=== PATIENT | female | born 1975 | race Caucasian/White ===

== ENCOUNTER 2020-09-10 06:39 | Inpatient (IN) | payer OTHER ==
[2020-09-10] MEDS ORDERED: DEXAMETHASONE SOD PHOSPHATE 10 MG/1 ML VIAL ONE (06:51)
[2020-09-10] MEDS: ALBUTEROL SO4 0.083% IH SOL 2.5 MG/3 ML VIAL.NEB. NEB SCH ×4 (07:05→07:44)
[2020-09-10 07:53] LABS: HEMATOCRIT 37.9 % (32.4-45.2); HEMOGLOBIN 12.7 GM/dL (10.7-15.3); MCH 30.8 pg (25.7-33.7); MCHC 33.6 g/dl (32.0-36.0); MEAN CELL VOLUME 91.7 fl (80-96); MEAN PLT VOLUME 9.4 fl (7.5-11.1); PLATELET COUNT 282 K/MM3 (134-434); RBC 4.13 M/mm3 (3.60-5.2); RDW 13.4 % (11.6-15.6); WHITE BLOOD COUNT 8.9 K/mm3 (4.0-10.0)
[2020-09-10 07:54] LABS: INR 0.86 (0.83-1.09); PROTHROMBIN TIME (PATIENT) 10.5 SEC (9.7-13.0)
[2020-09-10 08:07] LABS: CHLORIDE 108 mmol/L (98-107); POTASSIUM 3.3 mmol/L (3.5-5.1); SODIUM 142 mmol/L (136-145)
[2020-09-10 08:09] LABS: ALBUMIN 3.7 g/dl (3.4-5.0); ANION GAP 8 MMOL/L (8-16); CALCIUM 8.6 mg/dL (8.5-10.1); CO2 26 mmol/L (21-32)
[2020-09-10 08:10] LABS: GLUCOSE,RANDOM 118 mg/dL (74-106)
[2020-09-10 08:13] LABS: CREATININE 0.7 mg/dL (0.55-1.3); SGOT/AST 18 U/L (15-37); SGPT/ALT 20 U/L (13-61)
[2020-09-10 08:14] LABS: BILIRUBIN,TOTAL 0.2 mg/dL (0.2-1); TOT PROT 7.2 g/dl (6.4-8.2)
[2020-09-10 08:16] LABS: ALK PHOS 69 U/L (45-117)
[2020-09-10] MEDS ORDERED: POTASSIUM CHLORIDE TABS 20 MEQ TABLET.ER (FP) PO ONE ×2 (08:23→08:26)
[2020-09-10] MEDS ORDERED: ACETAMINOPHEN 500 MG TABLET (FP) PO ONE (08:50)
[2020-09-10] MEDS ORDERED: ACETAMINOPHEN 325 MG TABLET (FP) ONE (08:53)
[2020-09-10] MEDS ORDERED: ALBUTEROL SO4 0.083% IH SOL 2.5 MG/3 ML VIAL.NEB. NEB ONE ×2 (10:00→10:01)
[2020-09-10] MEDS ORDERED: METOCLOPRAMIDE HCL INJECTION 10 MG/2 ML VIAL IVPUSH ONE (13:35)
[2020-09-10] MEDS ORDERED: METOCLOPRAMIDE HCL INJECTION 10 MG/2 ML VIAL ONE (13:36)
[2020-09-10] MEDS ORDERED: ALBUTEROL SO4 HFA INHALER IH ONE (19:59)
[2020-09-10] MEDS: ALBUTEROL SO4 HFA INHALER IH PRN (20:05)
[2020-09-10] MEDS: MONTELUKAST NA 10 MG TABLET PO SCH (22:12)
[2020-09-10] MEDS: methylPREDNISolone NA SUCC 40 MG/1 ML VIAL IVPUSH SCH (22:12)
[2020-09-10 23:49] VITALS: BMI 29.2
[2020-09-11] MEDS: ACETAMINOPHEN 325 MG TABLET (FP) PO PRN ×3 (01:17→21:32)
[2020-09-11] MEDS: methylPREDNISolone NA SUCC 40 MG/1 ML VIAL IVPUSH SCH ×4 (02:18→18:16)
[2020-09-11] MEDS: ALBUTEROL SO4 HFA INHALER IH PRN (02:18)
[2020-09-11] MEDS: PANTOPRAZOLE 40 MG TABLET PO SCH (09:39)
[2020-09-11] MEDS: BUDESONIDE/FORMETEROL FUMARATE 160/4.5 mcg INHALER IH SCH ×2 (12:30→21:25)
[2020-09-11] MEDS ORDERED: methylPREDNISolone NA SUCC 40 MG/1 ML VIAL IVPUSH SCH (13:00)
[2020-09-11] MEDS: ALBUTEROL SO4 2.5/IPRATROPIUM 0.5 INH SOL 3 ML VIAL.NEB. NEB PRN ×2 (14:30→20:10)
[2020-09-11] MEDS: MONTELUKAST NA 10 MG TABLET PO SCH (21:25)
[2020-09-12] MEDS: methylPREDNISolone NA SUCC 40 MG/1 ML VIAL IVPUSH SCH ×2 (02:50→10:40)
[2020-09-12] MEDS: ACETAMINOPHEN 325 MG TABLET (FP) PO PRN (06:26)
[2020-09-12] MEDS: ALBUTEROL SO4 2.5/IPRATROPIUM 0.5 INH SOL 3 ML VIAL.NEB. NEB PRN (08:47)
[2020-09-12] MEDS: PANTOPRAZOLE 40 MG TABLET PO SCH (10:40)
[2020-09-12] MEDS: BUDESONIDE/FORMETEROL FUMARATE 160/4.5 mcg INHALER IH SCH (10:43)
[2020-09-12 11:20] VITALS: BP 118/64; PULSE 93; TEMP 98.9
== END 2020-09-12 15:03 | disposition home or self-care (01) | DRG 203 ==
LOC: JER 06:39 → JERBED 10:15 → J6S 20:50
PROVIDERS: ADMIT Internal Medicine; ATTEND Internal Medicine
DX: J45.901 Unspecified asthma with (acute) exacerbation (principal)
CPT/HCPCS: 36415; 71045-TC-FY; 80053; 83735; 84484; 84703; 85027; 85610; 85730; 93005; 93010; 94640; 94660; 99285-25; C9803; U0003

== ENCOUNTER 2021-06-09 19:13 | Inpatient (IN) | payer OTHER ==
[2021-06-09] MEDS ORDERED: ALBUTEROL SO4 2.5/IPRATROPIUM 0.5 INH SOL 3 ML VIAL.NEB. NEB ONE ×4 (19:31→23:57)
[2021-06-09] MEDS ORDERED: methylPREDNISolone NA SUCC 125 MG/2 ML VIAL IVPB ONE (19:48)
[2021-06-09] MEDS ORDERED: MAGNESIUM SULF 50% (8.12 MEQ/2 ML-1 GM VIAL) IVPB ONE (19:52)
[2021-06-09] MEDS ORDERED: methylPREDNISolone NA SUCC 125 MG/2 ML VIAL ONE (19:59)
[2021-06-09] MEDS ORDERED: MAGNESIUM SULFATE IN WATER 2 GM/50 ML IVPB IVPB ONE (19:59)
[2021-06-09] MEDS ORDERED: ALBUTEROL SO4 0.083% IH SOL 2.5 MG/3 ML VIAL.NEB. NEB ONE (20:15)
[2021-06-09] MEDS: ALBUTEROL SO4 2.5/IPRATROPIUM 0.5 INH SOL 3 ML VIAL.NEB. NEB SCH ×3 (20:22→21:49)
[2021-06-09 20:48] LABS: BASO % 0.6 % (0-2.0); EOS % 2.7 % (0-4.5); HEMATOCRIT 38.9 % (32.4-45.2); MCHC 33.4 g/dl (32.0-36.0); MEAN CELL VOLUME 89.9 fl (80-96); MEAN PLT VOLUME 9.8 fl (7.5-11.1); MONO % 9.5 % (3.8-10.2); NEUT % 78.2 % (42.8-82.8); PLATELET COUNT 242 10^3/uL (134-434); RBC 4.33 M/mm3 (3.60-5.2); RDW 13.7 % (11.6-15.6); WHITE BLOOD COUNT 9.3 K/mm3 (4.0-10.0)
[2021-06-09 21:25] LABS: ALBUMIN 3.7 g/dl (3.4-5.0); BLOOD UREA NITROGEN 4.9 mg/dL (7-18); CALCIUM 8.1 mg/dL (8.5-10.1)
[2021-06-09 21:28] LABS: CREATININE 0.7 mg/dL (0.55-1.3)
[2021-06-09 21:30] LABS: BILIRUBIN,TOTAL 0.4 mg/dL (0.2-1); TOT PROT 7.1 g/dl (6.4-8.2)
[2021-06-09] MEDS ORDERED: POTASSIUM CHLORIDE TABS 20 MEQ TABLET.ER (FP) PO ONE ×2 (22:01→22:04)
[2021-06-09] MEDS ORDERED: POTASSIUM CHLORIDE ORAL LIQUID 20 MEQ/15 ML ONE (22:08)
[2021-06-10] MEDS ORDERED: ALBUTEROL SO4 0.083% IH SOL 2.5 MG/3 ML VIAL.NEB. NEB ONE
[2021-06-10 02:26] VITALS: BMI 28.8
[2021-06-10] MEDS ORDERED: methylPREDNISolone NA SUCC 40 MG/1 ML VIAL IVPUSH ONE ×3 (04:30→09:48)
[2021-06-10] MEDS: ALBUTEROL SO4 0.083% IH SOL 2.5 MG/3 ML VIAL.NEB. NEB PRN ×4 (05:04→09:52)
[2021-06-10] MEDS ORDERED: ACETAMINOPHEN 325 MG TABLET (FP) PO PRN ×2 (05:11→10:54)
[2021-06-10] MEDS ORDERED: INSULIN SLIDING SCALE (NOVOLOG) 1 VIAL SQ SCH (07:00)
[2021-06-10 07:28] LABS: ARTERIAL BLD GAS O2 SATURATION 92.5 % (95-98); ARTERIAL BLOOD GAS BASE EXCESS -3.2 mmol/L (-2-2); ARTERIAL BLOOD GAS PO2 61.9 mmHg (80-100); ARTERIAL BLOOD GAS pH 7.423 (7.350-7.450)
[2021-06-10 07:30] LABS: ALLENS TEST POSITIVE
[2021-06-10] MEDS ORDERED: guaiFENesin 200 MG/10 ML 10 ML UNIT-DOSE CUPS PO PRN (07:55)
[2021-06-10 08:57] LABS: HEMATOCRIT 37.1 % (32.4-45.2); HEMOGLOBIN 12.5 GM/dL (10.7-15.3); MCHC 33.7 g/dl (32.0-36.0); MEAN PLT VOLUME 9.8 fl (7.5-11.1); PLATELET COUNT 255 10^3/uL (134-434); RBC 4.17 M/mm3 (3.60-5.2); RDW 13.9 % (11.6-15.6); WHITE BLOOD COUNT 9.3 K/mm3 (4.0-10.0)
[2021-06-10 09:28] LABS: BLOOD UREA NITROGEN 5.1 mg/dL (7-18); CALCIUM 8.8 mg/dL (8.5-10.1)
[2021-06-10 09:31] LABS: CREATININE 0.7 mg/dL (0.55-1.3)
[2021-06-10] MEDS ORDERED: ALBUTEROL SO4 2.5/IPRATROPIUM 0.5 INH SOL 3 ML VIAL.NEB. NEB ONE ×2 (09:49→10:54)
[2021-06-10] MEDS ORDERED: methylPREDNISolone NA SUCC 125 MG/2 ML VIAL ONE (09:50)
[2021-06-10] MEDS ORDERED: BUDESONIDE/FORMETEROL FUMARATE 160/4.5 mcg INHALER IH SCH (10:00)
[2021-06-10] MEDS ORDERED: LORATADINE 10 MG TABLET PO SCH (10:00)
[2021-06-10] MEDS ORDERED: methylPREDNISolone NA SUCC 40 MG/1 ML VIAL IVPUSH SCH ×4 (10:00→18:00)
[2021-06-10] MEDS ORDERED: ENOXAPARIN NA (PORCINE) 40 MG/0.4 ML DISP.SYRIN SQ SCH (10:00)
[2021-06-10] MEDS ORDERED: PANTOPRAZOLE 40 MG TABLET PO SCH (10:00)
[2021-06-10 10:09] LABS: ANISOCYTOSIS 0; HELMET CELLS 0; HOWELL-JOLLY BODIES 0; MACROCYTOSIS 0; OVALOCYTE 0; PLATELET ESTIMATE NORMAL; ROULEAU 0; SICKELED CELLS 0; TARGET CELLS 0; TEAR DROP CELLS 0; TOXIC GRANULATION 0
[2021-06-10] MEDS ORDERED: ONDANSETRON 4 MG/2 ML VIAL IVPUSH PRN ×2 (10:18→10:54)
[2021-06-10] MEDS ORDERED: ALBUTEROL SO4 0.083% IH SOL 2.5 MG/3 ML VIAL.NEB. NEB PRN ×2 (10:26→10:54)
[2021-06-10] MEDS ORDERED: PT OWN MED DRAWER 7, Y5N ONE ×2 (10:40→12:29)
[2021-06-10] MEDS ORDERED: LEVALBUTEROL HCL 0.63 MG/3 ML VIAL.NEB. IH SCH ×2 (11:00)
[2021-06-10] MEDS ORDERED: IPRATROPIUM BR 0.02% 0.5 MG/2.5 ML VIAL.NEB. NEB SCH ×2 (11:00)
[2021-06-10 11:49] LABS: ALLENS TEST POSITIVE; ARTERIAL BLD GAS O2 SATURATION 95.9 % (95-98); ARTERIAL BLOOD GAS BASE EXCESS -1.6 mmol/L (-2-2); ARTERIAL BLOOD GAS pH 7.409 (7.350-7.450)
[2021-06-10] MEDS ORDERED: ALBUTEROL SO4 2.5/IPRATROPIUM 0.5 INH SOL 3 ML VIAL.NEB. NEB SCH (12:00)
[2021-06-10] MEDS: INSULIN SLIDING SCALE (NOVOLOG) 1 VIAL SQ SCH ×3 (12:26→22:54)
[2021-06-10] MEDS: guaiFENesin 200 MG/10 ML 10 ML UNIT-DOSE CUPS PO PRN (12:32)
[2021-06-10] MEDS: methylPREDNISolone NA SUCC 40 MG/1 ML VIAL IVPUSH SCH ×2 (15:01→22:54)
[2021-06-10] MEDS: ALBUTEROL SO4 2.5/IPRATROPIUM 0.5 INH SOL 3 ML VIAL.NEB. NEB SCH ×2 (15:45→20:19)
[2021-06-10] MEDS ORDERED: MONTELUKAST NA 10 MG TABLET PO SCH (22:00)
[2021-06-10] MEDS: MONTELUKAST NA 10 MG TABLET PO SCH (22:54)
[2021-06-10] MEDS: BUDESONIDE/FORMETEROL FUMARATE 160/4.5 mcg INHALER IH SCH (22:57)
[2021-06-11] MEDS: methylPREDNISolone NA SUCC 40 MG/1 ML VIAL IVPUSH SCH ×4 (03:10→21:42)
[2021-06-11] MEDS: INSULIN SLIDING SCALE (NOVOLOG) 1 VIAL SQ SCH ×4 (06:15→21:35)
[2021-06-11] MEDS: ALBUTEROL SO4 2.5/IPRATROPIUM 0.5 INH SOL 3 ML VIAL.NEB. NEB SCH ×4 (08:05→20:15)
[2021-06-11] MEDS: LORATADINE 10 MG TABLET PO SCH (09:57)
[2021-06-11] MEDS: PANTOPRAZOLE 40 MG TABLET PO SCH (09:57)
[2021-06-11] MEDS: ENOXAPARIN NA (PORCINE) 40 MG/0.4 ML DISP.SYRIN SQ SCH (09:57)
[2021-06-11] MEDS: BUDESONIDE/FORMETEROL FUMARATE 160/4.5 mcg INHALER IH SCH ×2 (09:58→21:43)
[2021-06-11 13:56] LABS: EPI CELLS 11 /uL (0-25.1); HYALINE CASTS 2 /uL (0-3.1); URINE APPEARANCE CLOUDY; URINE BACTERIA >9,000 /uL (0-1359); URINE BILIRUBIN NEGATIVE (NEGATIVE); URINE COLOR YELLOW; URINE GLUCOSE (UA) NEGATIVE (NEGATIVE); URINE KETONE NEGATIVE (NEGATIVE); URINE LEUK ESTERASE TRACE (NEGATIVE); URINE NITRITE NEGATIVE (NEGATIVE); URINE PROTEIN NEGATIVE (NEGATIVE); URINE RBC 11 /uL (0-23.9); URINE WBC 49 /uL (0-25.8)
[2021-06-11 16:54] LABS: HEMATOCRIT 38.7 % (32.4-45.2); HEMOGLOBIN 12.6 GM/dL (10.7-15.3); MCH 29.5 pg (25.7-33.7); MCHC 32.6 g/dl (32.0-36.0); MEAN CELL VOLUME 90.6 fl (80-96); PLATELET COUNT 282 10^3/uL (134-434); RBC 4.27 M/mm3 (3.60-5.2); RDW 14.1 % (11.6-15.6); WHITE BLOOD COUNT 26.5 K/mm3 (4.0-10.0)
[2021-06-11 17:42] LABS: CALCIUM 8.9 mg/dL (8.5-10.1)
[2021-06-11 17:43] LABS: ALBUMIN 3.6 g/dl (3.4-5.0); BLOOD UREA NITROGEN 14.3 mg/dL (7-18)
[2021-06-11 17:44] LABS: MAGNESIUM 2.3 mg/dL (1.8-2.4)
[2021-06-11 17:46] LABS: CREATININE 0.9 mg/dL (0.55-1.3); PHOSPHOROUS 2.7 mg/dL (2.5-4.9)
[2021-06-11 17:47] LABS: BILIRUBIN,TOTAL 0.2 mg/dL (0.2-1)
[2021-06-11 17:48] LABS: TOT PROT 7.4 g/dl (6.4-8.2)
[2021-06-11] MEDS: MELATONIN 5 MG TABLETS PO PRN (21:42)
[2021-06-11] MEDS: MONTELUKAST NA 10 MG TABLET PO SCH (21:43)
[2021-06-12] MEDS: methylPREDNISolone NA SUCC 40 MG/1 ML VIAL IVPUSH SCH ×3 (02:12→17:03)
[2021-06-12] MEDS: INSULIN SLIDING SCALE (NOVOLOG) 1 VIAL SQ SCH ×4 (06:34→21:25)
[2021-06-12] MEDS: ALBUTEROL SO4 2.5/IPRATROPIUM 0.5 INH SOL 3 ML VIAL.NEB. NEB SCH ×4 (07:55→20:14)
[2021-06-12] MEDS: PANTOPRAZOLE 40 MG TABLET PO SCH (09:38)
[2021-06-12] MEDS: ENOXAPARIN NA (PORCINE) 40 MG/0.4 ML DISP.SYRIN SQ SCH (09:38)
[2021-06-12] MEDS: LORATADINE 10 MG TABLET PO SCH (09:38)
[2021-06-12] MEDS: BUDESONIDE/FORMETEROL FUMARATE 160/4.5 mcg INHALER IH SCH ×2 (09:39→21:51)
[2021-06-12] MEDS: MONTELUKAST NA 10 MG TABLET PO SCH (21:22)
[2021-06-12] MEDS: MELATONIN 5 MG TABLETS PO PRN (21:33)
[2021-06-12] MEDS: guaiFENesin 200 MG/10 ML 10 ML UNIT-DOSE CUPS PO PRN (21:33)
[2021-06-13] MEDS: methylPREDNISolone NA SUCC 40 MG/1 ML VIAL IVPUSH SCH ×3 (01:05→21:52)
[2021-06-13] MEDS: INSULIN SLIDING SCALE (NOVOLOG) 1 VIAL SQ SCH ×4 (06:05→21:52)
[2021-06-13] MEDS: ALBUTEROL SO4 2.5/IPRATROPIUM 0.5 INH SOL 3 ML VIAL.NEB. NEB SCH (08:24)
[2021-06-13] MEDS: PANTOPRAZOLE 40 MG TABLET PO SCH (09:35)
[2021-06-13] MEDS: BUDESONIDE/FORMETEROL FUMARATE 160/4.5 mcg INHALER IH SCH ×2 (09:35→22:05)
[2021-06-13] MEDS: LORATADINE 10 MG TABLET PO SCH (09:35)
[2021-06-13] MEDS: ENOXAPARIN NA (PORCINE) 40 MG/0.4 ML DISP.SYRIN SQ SCH (09:35)
[2021-06-13] MEDS ORDERED: methylPREDNISolone NA SUCC 40 MG/1 ML VIAL IVPUSH SCH (11:30)
[2021-06-13] MEDS ORDERED: LEVALBUTEROL HCL 0.31 MG/3 ML VIAL.NEB IH PRN (11:45)
[2021-06-13] MEDS: LEVALBUTEROL HCL 0.63 MG/3 ML VIAL.NEB. IH SCH ×2 (14:32→20:30)
[2021-06-13] MEDS: MONTELUKAST NA 10 MG TABLET PO SCH (21:53)
[2021-06-13] MEDS: MELATONIN 5 MG TABLETS PO PRN (21:53)
[2021-06-14] MEDS: INSULIN SLIDING SCALE (NOVOLOG) 1 VIAL SQ SCH ×4 (07:02→21:49)
[2021-06-14] MEDS: LEVALBUTEROL HCL 0.63 MG/3 ML VIAL.NEB. IH SCH ×3 (08:00→20:39)
[2021-06-14] MEDS: BUDESONIDE/FORMETEROL FUMARATE 160/4.5 mcg INHALER IH SCH ×2 (09:15→21:49)
[2021-06-14] MEDS: LORATADINE 10 MG TABLET PO SCH (09:15)
[2021-06-14] MEDS: ENOXAPARIN NA (PORCINE) 40 MG/0.4 ML DISP.SYRIN SQ SCH (09:15)
[2021-06-14] MEDS: methylPREDNISolone NA SUCC 40 MG/1 ML VIAL IVPUSH SCH ×2 (09:15→21:49)
[2021-06-14] MEDS: PANTOPRAZOLE 40 MG TABLET PO SCH (09:15)
[2021-06-14] MEDS: MONTELUKAST NA 10 MG TABLET PO SCH (21:49)
[2021-06-14] MEDS: MELATONIN 5 MG TABLETS PO PRN (21:49)
[2021-06-14] MEDS: guaiFENesin 200 MG/10 ML 10 ML UNIT-DOSE CUPS PO PRN (21:50)
[2021-06-15] MEDS: INSULIN SLIDING SCALE (NOVOLOG) 1 VIAL SQ SCH ×2 (06:32→12:00)
[2021-06-15] MEDS: LEVALBUTEROL HCL 0.63 MG/3 ML VIAL.NEB. IH SCH (07:33)
[2021-06-15] MEDS: LORATADINE 10 MG TABLET PO SCH (09:20)
[2021-06-15] MEDS: PANTOPRAZOLE 40 MG TABLET PO SCH (09:20)
[2021-06-15] MEDS: ENOXAPARIN NA (PORCINE) 40 MG/0.4 ML DISP.SYRIN SQ SCH (09:20)
[2021-06-15] MEDS: BUDESONIDE/FORMETEROL FUMARATE 160/4.5 mcg INHALER IH SCH (09:21)
[2021-06-15] MEDS: methylPREDNISolone NA SUCC 40 MG/1 ML VIAL IVPUSH SCH (09:38)
[2021-06-15 11:23] VITALS: BP 120/76; PULSE 84; TEMP 98.6
[2021-06-15] MEDS ORDERED: predniSONE 20 MG TABLET (UD) PO SCH (11:30)
== END 2021-06-15 15:00 | disposition home or self-care (01) | DRG 202 ==
LOC: JER 19:13 → JERBED 21:40 → J5S 06-10 01:14 → J4W 06-10 14:22
PROVIDERS: ADMIT Internal Medicine; ATTEND Internal Medicine
DX: J45.42 Moderate persistent asthma with status asthmaticus (principal); N39.0 Urinary tract infection, site not specified; R06.03 Acute respiratory distress; R00.0 Tachycardia, unspecified
CPT/HCPCS: 36415; 36600; 71045-TC-FY; 80048; 80053; 81003; 82803; 82962; 83036; 83735; 84100; 84703; 85025; 87086; 87186; 87804; 87807; 93005; 93010; 94010; 94150; 94640; 94660; 99285-25; C9803; U0003; U0005

== ENCOUNTER 2022-03-18 08:05 | Emergency (ER) | payer BC ==
[2022-03-18 09:31] VITALS: BP 119/79; PULSE 118; TEMP 99.3; BMI 29.0
[2022-03-18] MEDS ORDERED: IBUPROFEN 600 MG TABLET (FP) PO ONE ×2 (09:38→09:47)
[2022-03-18] MEDS ORDERED: DEXAMETHASONE LIQUID 0.5 MG/5 ML PO ONE (09:38)
[2022-03-18] MEDS ORDERED: ALBUTEROL SO4 2.5/IPRATROPIUM 0.5 INH SOL 3 ML VIAL.NEB. NEB SCH (09:45)
[2022-03-18] MEDS ORDERED: ALBUTEROL SO4 2.5/IPRATROPIUM 0.5 INH SOL 3 ML VIAL.NEB. NEB ONE (09:47)
[2022-03-18] MEDS ORDERED: DEXAMETHASONE SOD PHOSPHATE 10 MG/1 ML VIAL ONE (09:47)
== END 2022-03-18 11:30 | disposition home or self-care (01) ==
LOC: JER 08:05
PROC: 3E0F7GC Introduction of Other Therapeutic Substance into Respiratory Tract, Via Natural or Artificial Opening (ICD-10-PCS; principal; 2022-03-18)
DX: J45.901 Unspecified asthma with (acute) exacerbation (principal)
CPT/HCPCS: 0241U-QW; 71046-TC-FY; 99284-25